=== PATIENT | female | born 1950 | race Caucasian/White ===

== ENCOUNTER 2019-11-14 14:44 | Emergency (ER) | payer MEDICARE, MEDICAID ==
[~2019-11-14] VITALS: Ht 167 cm; Wt 57.0 kg
--- NOTE | 2019-11-14 15:10 | NUR ---
WHILE JOHNNA LEON AND MYSELF WERE ASSISTING PT FROM W/C TO THE BED PT URINATED IN HER SHORTS AND ON THE FLOOR. SHORTS PLACED IN BELONGINGS BAG.
--- NOTE | 2019-11-14 15:21 | ED General ---
General Stated Complaint: FEVER Source of Information: Patient Exam Limitations: No Limitations History of Present Illness Date Seen by Provider: Nov 14, 2019 Time Seen by Provider: 15:20 Initial Comments To ER with reports of fever up to 102.5 earlier today. She was diagnosed with urinary tract infection on Tuesday11/09/19 and started on Bactrim DS. Today she developed a fever, she most recently had ibuprofen and Tylenol at 1:50 PM. Primary care is Dr. Newsome. She is from [place] as she is severely developmentally delayed Timing/Duration: 2-3 Days Severity: Moderate Associated Systoms: Denies Symptoms Allergies and Home Medications Allergies Coded Allergies: No Known Drug Allergies (Unverified , 11/14/19) Patient Home Medication List Home Medication List Reviewed: Yes Review of Systems Review of Systems Constitutional: see HPI, other (unable to obtain due to MR status ) EENTM: see HPI Respiratory: no symptoms reported Cardiovascular: no symptoms reported Genitourinary: no symptoms reported Musculoskeletal: no symptoms reported Skin: no symptoms reported Psychiatric/Neurological: No Symptoms Reported Hematologic/Lymphatic: No Symptoms Reported Past Orydhsj-Sjutbw-Zzutpi Hx Patient Social History Recent Foreign Travel: No Contact w/Someone Who Travel: No Physical Exam Vital Signs Vital Signs - First Documented 11/14/19 15:10 Temp 36.2 Pulse 65 Resp 20 B/P (MAP) 93/70 (78) Pulse Ox 97 O2 Delivery Room Air Capillary Refill : Height, Weight, BMI Height: '" Weight: lbs. oz. kg; BMI Method: General Appearance: No Apparent Distress, WD/WN, Other (alert, stands up with standby assistance out of the wheelchair and into bed, makes noises but no words. No distress, oxygen saturation 97% room air, afebrile 97.5, blood pressure 93/76.) Eyes: Bilateral Eye Normal Inspection, Bilateral Eye PERRL, Bilateral Eye EOMI HEENT: PERRL/EOMI Neck: Full Range of Motion, Normal Inspection Respiratory: No Accessory Muscle Use, No Respiratory Distress Cardiovascular: Regular Rate, Rhythm, Normal Peripheral Pulses (pain.) Gastrointestinal: Non Tender, Soft Extremity: Normal Capillary Refill, Normal Inspection Neurologic/Psychiatric: Alert, Oriented x3 Skin: Normal Color, Warm/Dry Focused Exam Lactate Level 11/14/19 15:15: Lactic Acid Level 0.97 Lactic Acid Level Laboratory Tests Test 11/14/19 15:15 Lactic Acid Level 0.97 MMOL/L (0.50-2.00) Progress/Results/Core Measures Suspected Sepsis SIRS Temperature: Pulse: Respiratory Rate: Laboratory Tests 11/14/19 15:15: White Blood Count 3.9L Blood Pressure / Mean: 11/14/19 15:15: Lactic Acid Level 0.97 Laboratory Tests 11/14/19 15:15: Creatinine 0.80, Platelet Count 257, Total Bilirubin 0.4 Results/Orders Lab Results Laboratory Tests Test 11/14/19 15:15 Range/Units White Blood Count 3.9 L 4.3-11.0 10^3/uL Red Blood Count 4.02 L 4.35-5.85 10^6/uL Hemoglobin 11.5 11.5-16.0 G/DL Hematocrit 35 35-52 % Mean Corpuscular Volume 88 80-99 FL Mean Corpuscular Hemoglobin 29 25-34 PG Mean Corpuscular Hemoglobin Concent 33 32-36 G/DL Red Cell Distribution Width 14.9 H 10.0-14.5 % Platelet Count 257 130-400 10^3/uL Mean Platelet Volume 9.7 7.4-10.4 FL Neutrophils (%) (Auto) 47 42-75 % Lymphocytes (%) (Auto) 36 12-44 % Monocytes (%) (Auto) 13 H 0-12 % Eosinophils (%) (Auto) 4 0-10 % Basophils (%) (Auto) 0 0-10 % Neutrophils # (Auto) 1.8 1.8-7.8 X 10^3 Lymphocytes # (Auto) 1.4 1.0-4.0 X 10^3 Monocytes # (Auto) 0.5 0.0-1.0 X 10^3 Eosinophils # (Auto) 0.1 0.0-0.3 10^3/uL Basophils # (Auto) 0.0 0.0-0.1 10^3/uL Urine Color YELLOW Urine Clarity CLEAR Urine pH 6.0 5-9 Urine Specific [place] 1.015 L 1.016-1.022 Urine Protein NEGATIVE NEGATIVE Urine Glucose (UA) NEGATIVE NEGATIVE Urine Ketones NEGATIVE NEGATIVE Urine Nitrite NEGATIVE NEGATIVE Urine Bilirubin NEGATIVE NEGATIVE Urine Urobilinogen 0.2 < = 1.0 MG/DL Urine Leukocyte Esterase 3+ H NEGATIVE Urine RBC (Auto) 1+ H NEGATIVE Urine RBC 5-10 H /HPF Urine WBC 10-25 H /HPF Urine Squamous Epithelial Cells 2-5 /HPF Urine Crystals NONE /LPF Urine Bacteria TRACE /HPF Urine Casts NONE /LPF Urine Mucus NEGATIVE /LPF Urine Culture Indicated YES Sodium Level 140 135-145 MMOL/L Potassium Level 4.5 3.6-5.0 MMOL/L Chloride Level 107 98-107 MMOL/L Carbon Dioxide Level 24 21-32 MMOL/L Anion Gap 9 5-14 MMOL/L Blood Urea Nitrogen 18 7-18 MG/DL Creatinine 0.80 0.60-1.30 MG/DL Estimat Glomerular Filtration Rate > 60 BUN/Creatinine Ratio 23 Glucose Level 100 70-105 MG/DL Lactic Acid Level 0.97 0.50-2.00 MMOL/L Calcium Level 8.9 8.5-10.1 MG/DL Corrected Calcium 9.2 8.5-10.1 MG/DL Total Bilirubin 0.4 0.1-1.0 MG/DL Aspartate Amino Transf (AST/SGOT) 18 5-34 U/L Alanine Aminotransferase (ALT/SGPT) 14 0-55 U/L Alkaline Phosphatase 51 40-136 U/L C-Reactive Protein High Sensitivity 0.01 0.00-0.50 MG/DL Total Protein 6.4 6.4-8.2 GM/DL Albumin 3.6 3.2-4.5 GM/DL My Orders Orders - JOHNNA LEON APRN Cbc With Automated Diff (11/14/19 14:55) Hs C Reactive Protein (11/14/19 14:55) Comprehensive Metabolic Panel (11/14/19 14:55) Ua Culture If Indicated (11/14/19 14:55) Ed Iv/Invasive Line Start (11/14/19 14:55) Blood Culture (11/14/19 14:55) Chest 1 View, Ap/Pa Only (11/14/19 14:55) Lactic Acid Analyzer (11/14/19 14:55) Ns Iv 1000 Ml (Sodium Chloride 0.9%) (11/14/19 15:45) Urine Culture (11/14/19 15:15) Ceftriaxone For Iv Use (Rocephin For I (11/14/19 16:00) Vital Signs/I&O 11/14/19 15:10 Temp 36.2 Pulse 65 Resp 20 B/P (MAP) 93/70 (78) Pulse Ox 97 O2 Delivery Room Air Capillary Refill : Diagnostic Imaging Diagonstic Imaging: Xray Comments NAME: JOSE PICHARDO [facility] REC#: [id number] PT STATUS: REG ER : 1950 PHYSICIAN: JOHNNA LEON APRN ADMIT DATE: 11/14/19/ER Draft Date of Exam:11/14/19 CHEST 1 VIEW, AP/PA ONLY HISTORY: Fever, UTI. COMPARISON: None. TECHNIQUE: Single frontal view of the chest. FINDINGS: Lung volumes are normal. No focal consolidation is seen. There is no pleural effusion or pneumothorax. The cardiac silhouette is normal in size and contour. Subdiaphragmatic air on the right appears to be intraluminal. IMPRESSION: 1. No acute pulmonary abnormality is seen. Dictated on workstation # [id number] Dict: 11/14/19 1544 Trans: 11/14/19 1548 [id number] Interpreted by: RACHEL LEBLANC MD Electronically signed by: Departure Impression Primary Impression: Urinary tract infection Qualified Codes: N30.00 - Acute cystitis without hematuria Disposition: HOME, SELF-CARE Condition: Stable Departure-Patient Inst. Decision time for Depature: 15:53 Referrals: KIRAN NEWSOME DO (PCP/Family) Primary Care Physician Patient Instructions: Urinary Tract Infections in Adults Add. Discharge Instructions: 1. Return to ER for any concerns 2. Follow-up with her doctor next week 3. Stop the Bactrim and start the Levaquin for antibiotic coverage of the urina ry tract infection. We did swab her for COVID 19 that result typically is back within 24-48 hours. Scripts Levofloxacin (Levaquin) 500 Mg Tablet 500 MG PO DAILY, #5 TAB Prov: JOHNNA LEON APRN 11/14/19 JOHNNA LEON APRN Nov 14, 2019 15:21
[2019-11-14 15:30] LABS: BASOPHILS % (AUTO) 0 % (0-10); EOSINOPHILS # (AUTO) 0.1 10^3/uL (0.0-0.3); EOSINOPHILS % (AUTO) 4 % (0-10); HEMATOCRIT 35 % (35-52); HEMOGLOBIN 11.5 G/DL (11.5-16.0); LYMPHOCYTES # (AUTO) 1.4 X 10^3 (1.0-4.0); LYMPHOCYTES % (AUTO) 36 % (12-44); MEAN CORPUSCULAR HEMOGLOBIN 29 PG (25-34); MEAN CORPUSCULAR HGB CONC 33 G/DL (32-36); MEAN CORPUSCULAR VOLUME 88 FL (80-99); MEAN PLATELET VOLUME 9.7 FL (7.4-10.4); MONOCYTES # (AUTO) 0.5 X 10^3 (0.0-1.0); MONOCYTES % (AUTO) 13 % (0-12); NEUTROPHILS # (AUTO) 1.8 X 10^3 (1.8-7.8); NEUTROPHILS % (AUTO) 47 % (42-75); PLATELET COUNT 257 10^3/uL (130-400); RED CELL DISTRIBUTION WIDTH 14.9 % (10.0-14.5); WHITE BLOOD COUNT 3.9 10^3/uL (4.3-11.0)
[2019-11-14 15:37] LABS: BILIRUBIN,URINE NEGATIVE (NEGATIVE); CLARITY,URINE CLEAR; COLOR,URINE YELLOW; GLUCOSE, URINE (UA) NEGATIVE (NEGATIVE); KETONES,URINE NEGATIVE (NEGATIVE); LEUKOCYTE ESTERASE ,URINE 3+ (NEGATIVE); NITRITE,URINE NEGATIVE (NEGATIVE); PROTEIN,URINE NEGATIVE (NEGATIVE)
[2019-11-14 15:39] LABS: ALBUMIN 3.6 GM/DL (3.2-4.5); CHLORIDE 107 MMOL/L (98-107); POTASSIUM 4.5 MMOL/L (3.6-5.0); SODIUM 140 MMOL/L (135-145)
[2019-11-14 15:40] LABS: CALCIUM 8.9 MG/DL (8.5-10.1)
[2019-11-14 15:41] LABS: GLUCOSE 100 MG/DL (70-105); TOTAL PROTEIN 6.4 GM/DL (6.4-8.2)
[2019-11-14 15:42] LABS: CARBON DIOXIDE 24 MMOL/L (21-32)
[2019-11-14 15:43] LABS: BILIRUBIN,TOTAL 0.4 MG/DL (0.1-1.0)
[2019-11-14 15:45] LABS: ALKALINE PHOSPHATASE 51 U/L (40-136); BACTERIA,URINE TRACE /HPF; GFR ESTIMATED > 60
[2019-11-14] MEDS ORDERED: NS IV 1000 ML 1,000 ML IV SCH (15:45)
[2019-11-14 15:46] LABS: BUN/CREATININE RATIO 23
[2019-11-14 15:48] LABS: ALANINE AMINOTRANSFERASE 14 U/L (0-55)
--- NOTE | 2019-11-14 15:49 | Diagnostic Imaging Report ---
HISTORY: Fever, UTI. COMPARISON: None. TECHNIQUE: Single frontal view of the chest. FINDINGS: Lung volumes are normal. No focal consolidation is seen. There is no pleural effusion or pneumothorax. The cardiac silhouette is normal in size and contour. Subdiaphragmatic air on the right appears to be intraluminal. IMPRESSION: 1. No acute pulmonary abnormality is seen. Dictated by: Dictated on workstation # [id number]
[2019-11-14] MEDS ORDERED: LEVO500T2 PO (15:55)
[2019-11-14] MEDS ORDERED: cefTRIAXone FOR IV USE 1,000 MG in WATER (STERILE) FOR INJECTION 10 ML IV ONE (16:00)
[2019-11-14 16:17] VITALS: BP 106/89
--- OUTSIDE RECORDS SUMMARY | 2019-11-14 17:21 | XMS REPORT | Continuity of Care Document ---
Author Organization Unknown Address Unknown Phone Unavailable Allergies Active Description Code Type Severity Reaction Onset Reported/Identified Relationship to Patient Clinical Status Yes No Known Drug Allergies [id number] Drug Allergy Unknown N/A 11/14/2019 Medications There is no data. Problems Date Dx Coded Attending Type Code Diagnosis Diagnosed By 03/13/2015 KIRAN NEWSOME DO Ot V76.12 03/31/2015 Ot V76.12 03/31/2015 Ot 729.81 03/31/2015 Ot 785.9 03/31/2015 Ot V76.12 03/31/2015 KIRAN NEWSOME DO Ot V76.12 03/31/2015 KIRAN NEWSOME DO Ot V76.12 07/23/2015 Ot R60.0 08/14/2015 Ot I77.9 08/14/2015 Ot R20.8 08/14/2015 Ot R60.0 08/18/2015 Ot F72 08/18/2015 Ot M79.89 08/18/2015 Ot R20.8 04/15/2016 Ot 729.81 SWE LLING OF LIMB 04/15/2016 Ot 785.9 CARD IOVAS SYS SYMP NEC 04/15/2016 Ot V76.12 OTH SCREEN MAMMO- MALIGN NEOPLASM OF ISA 04/15/2016 KIRAN NEWSOME DO Ot V76.12 OTH SCREEN MAMMO-MALIGN NEOPLASM OF ISA 04/15/2016 Ot F72 SEVERE INTELLECTUAL DISABILITIES 04/15/2016 Ot M79.89 OTH ER SPECIFIED SOFT TISSUE DISORDERS 04/15/2016 Ot R20.8 OTHE R DISTURBANCES OF SKIN SENSATION 04/15/2016 KIRAN NEWSOME DO Ot Z12.31 ENCNTR SCREEN MAMMOGRAM FOR MALIGNANT NE 04/16/2016 KIRAN NEWSOME DO Ot Z12.31 ENCNTR SCREEN MAMMOGRAM FOR MALIGNANT NE 04/16/2016 KIRAN NEWSOME DO Ot Z12.31 ENCNTR SCREEN MAMMOGRAM FOR MALIGNANT NE 05/06/2016 KIRAN NEWSOME DO Ot Z12.31 ENCNTR SCREEN MAMMOGRAM FOR MALIGNANT NE 05/12/2016 GELLENDER DO, KIRAN Ortiz Ot Z12.31 ENCNTR SCREEN MAMMOGRAM FOR MALIGNANT NE 06/03/2016 Ot F72 SEVERE INTELLECTUAL DISABILITIES 06/03/2016 Ot M79.89 OTH ER SPECIFIED SOFT TISSUE DISORDERS 06/03/2016 Ot R09.89 OTH SYMPTOMS AND SIGNS INVOLVING THE CIR 11/14/2019 GELLENDER DO, KIRAN Ortiz Ot V76.12 OTH SCREEN MAMMO-MALIGN NEOPLASM OF ISA 11/14/2019 Ot F72 SEVERE INTELLECTUAL DISABILITIES 11/14/2019 Ot M79.89 OTH ER SPECIFIED SOFT TISSUE DISORDERS 11/14/2019 Ot R09.89 OTH SYMPTOMS AND SIGNS INVOLVING THE CIR 11/14/2019 GELLENDER DO, KIRAN Ortiz Ot Z12.31 ENCNTR SCREEN MAMMOGRAM FOR MALIGNANT NE 11/14/2019 GELLENDER DO, KIRAN Ortiz Ot V76.12 OTH SCREEN MAMMO-MALIGN NEOPLASM OF ISA 11/14/2019 Ot F72 SEVERE INTELLECTUAL DISABILITIES 11/14/2019 Ot M79.89 OTH ER SPECIFIED SOFT TISSUE DISORDERS 11/14/2019 Ot R09.89 OTH SYMPTOMS AND SIGNS INVOLVING THE CIR 11/14/2019 GELLENDER DO, KIRAN Ortiz Ot Z12.31 ENCNTR SCREEN MAMMOGRAM FOR MALIGNANT NE 11/14/2019 GELLENDER DO, KIRAN Ortiz Ot V76.12 OTH SCREEN MAMMO-MALIGN NEOPLASM OF ISA 11/14/2019 Ot F72 SEVERE INTELLECTUAL DISABILITIES 11/14/2019 Ot M79.89 OTH ER SPECIFIED SOFT TISSUE DISORDERS 11/14/2019 Ot R09.89 OTH SYMPTOMS AND SIGNS INVOLVING THE CIR 11/14/2019 GELLENDER DO, KIRAN Ortiz Ot Z12.31 ENCNTR SCREEN MAMMOGRAM FOR MALIGNANT NE Procedures There is no data. Results Test Result Range Complete blood count (CBC) with automate d white blood cell (WBC) differential - 11/14/19 15:15 Blood leukocytes automated count (number/volume) 3.9 10*3/uL 4.3-11.0 Blood erythrocytes automated count (number/volume) 4.02 10*6/uL 4.35-5.85 Venous blood hemoglobin measurement (mass/volume) 11.5 g/dL 11.5-16.0 Blood hematocrit (volume fraction) 35 % 35-52 Automated erythrocyte mean corpuscular volume 88 [ foz_us] 80-99 Automated erythrocyte mean corpuscular h emoglobin (mass per erythrocyte) 29 pg 25-34 Automated erythrocyte mean corpuscular h emoglobin concentration measurement (mass/volume) 33 g/dL 32-36 Automated erythrocyte distribution width ratio 14. 9 % 10.0- 14.5 Automated blood platelet count (count/volume) 257 10*3/uL 130-400 Automated blood platelet mean volume measurement 9.7 [foz_us] 7.4-10.4 Automated blood neutrophils/100 leukocytes 47 % 42-75 Automated blood lymphocytes/100 leukocytes 36 % 12-44 Blood monocytes/100 leukocytes 13 % 0-12 Automated blood eosinophils/100 leukocytes 4 % 0-10 Automated blood basophils/100 leukocytes 0 % 0-10 Blood neutrophils automated count (number/volume) 1.8 10*3 1.8-7.8 Blood lymphocytes automated count (number/volume) 1.4 10*3 1.0-4.0 Blood monocytes automated count (number/volume) 0. 5 10*3 0.0-1.0 Automated eosinophil count 0.1 10*3/uL 0 .0-0.3 Automated blood basophil count (count/volume) 0.0 10*3/uL 0.0-0.1 Comprehensive metabolic panel - 11/14/19 15:15 Serum or plasma sodium measurement (moles/volume) 140 mmol/L 135-145 Serum or plasma potassium measurement (moles/volume) 4.5 mmol/L 3.6-5.0 Serum or plasma chloride measurement (moles/volume) 107 mmol/L 98-107 Carbon dioxide 24 mmol/L 21-32 Serum or plasma anion gap determination (moles/volume) 9 mmol/L 5-14 Serum or plasma urea nitrogen measurement (mass/volume ) 18 mg/dL 7-18 Serum or plasma creatinine measurement (mass/volume) 0.80 mg/dL 0.60-1.30 Serum or plasma urea nitrogen/creatinine mass ratio 23 NRG Serum or plasma creatinine measurement w ith calculation of estimated glomerular filtration rate > NRG Serum or plasma glucose measurement (mass/volume) 100 mg/dL 70-105 Serum or plasma calcium measurement (mass/volume) 8.9 mg/dL 8.5-10.1 Serum or plasma total bilirubin measurement (mass/volu me) 0.4 mg/dL 0.1-1.0 Serum or plasma alkaline phosphatase cory surement (enzymatic activity/volume) 51 U/L 40-136 Serum or plasma aspartate aminotransfera se measurement (enzymatic activity/volume) 18 U/L 5-34 Serum or plasma alanine aminotransferase measurement (enzymatic activity/volume) 14 U/L 0-55 Serum or plasma protein measurement (mass/volume) 6.4 g/dL 6.4-8.2 Serum or plasma albumin measurement (mass/volume) 3.6 g/dL 3.2-4.5 CALCIUM CORRECTED 9.2 mg/dL 8.5-10.1 Blood lactic acid measurement (moles/vol ume) - 11/14/19 15:15 Blood lactic acid measurement (moles/volume) 0.97 mmol/L 0.50-2.00 Complete urinalysis with reflex to cultu re - 11/14/19 15:15 Urine color determination YELLOW NRG Urine clarity determination CLEAR NR G Urine pH measurement by test strip 6.0 5-9 Specific gravity of urine by test strip 1.015 1.016-1.022 Urine protein assay by test strip, semi-quantitative NEGATIVE NEGATIVE Urine glucose detection by automated test strip NE GATIVE NEGATIVE Erythrocytes detection in urine sediment by light micr oscopy 1+ NEGATIVE Urine ketones detection by automated test strip NE GATIVE NEGATIVE Urine nitrite detection by test strip NEGATIVE NEGATIVE Urine total bilirubin detection by test strip NEGA TIVE NEGATIVE Urine urobilinogen measurement by automated test strip (mass/volume) 0.2 mg/dL < = 1.0 Urine leukocyte esterase detection by dipstick 3+ NEGATIVE Automated urine sediment erythrocyte cou nt by microscopy (number/high power field) [HPF] NRG Automated urine sediment leukocyte count by microscopy (number/high power field) [HPF] NRG Bacteria detection in urine sediment by light microsco py TRACE NRG Squamous epithelial cells detection in u rine sediment by light microscopy 2-5 NRG Crystals detection in urine sediment by light microsco py NONE NRG Casts detection in urine sediment by light microscopy NONE NRG Mucus detection in urine sediment by light microscopy NEGATIVE NRG Complete urinalysis with reflex to culture YES NRG Serum or plasma C reactive protein measu rement (mass/volume) - 11/14/19 15:15 Serum or plasma C reactive protein measurement (mass/v olume) 0.01 mg/dL 0.00-0.50 Encounters ACCT No. Visit Date/Time Discharge Status Pt. Type Provider Facility Loc./Unit Complaint [id number] 11/14/2019 14:45:00 020 16:17:00 DIS Emergency JOHNNA LEON APRN [facility] ER FEVER [id number] 04/15/2016 10:05:00 016 23:59:59 CLS Outpatient KIRAN NEWSOME DO [facility] RAD SCREENING [id number] 02/21/2015 13:11:00 015 23:59:59 CLS Outpatient KIRAN NEWSOME DO [facility] RAD SCREENING [id number] 07/10/2015 14:08:00 Document Registration [id number] 05/24/2011 09:47:00 Document Registration [id number] 01/14/2011 14:18:00 Document Registration [id number] 10/16/2009 12:37:00 Document Registration
--- OUTSIDE RECORDS SUMMARY | 2019-11-14 17:21 | XMS REPORT ---
Author Author [employer] broadband [employer] [facility] [place] [employer] [facility] Address [address] [place] [address] Care Team Providers Care Air Conditioning Service Technician Name Role Phone GELLENDER DO, KIRAN A Unavailable Unavailable Unavailable Unavailable Unavailable Unavailable Allergies No Information Medications No Information Problems Problem Normalized Date Last Normalized Normalized Provider Fa cility Classification Problem(s) Recorded Problem Problem Sta tus Duration Other Encounter for 11-14-2019 - Episodic Active KIRAN [facility] Via screening for screening GELLENDER , DO Kath[place] suspected mammogram for Hospital - conditions malignant [place] (not mental neoplasm of (41674) disorders or breast infectious disease) (1 source.) Other Other 11-14-2019 - Episodic Active KIRAN [facility] V ia connective specified soft GELLENDER , DO [place] tissue disease tissue Hospital - (2 sources.) disorders [place] ([address]) Other Other 11-14-2019 - Episodic Active K[facility]AN [facility] V ia circulatory specified GELLENDER , DO Kath[place] disease (2 symptoms and Hospital - sources.) signs [place] involving the ([address]74) circulatory and respiratory systems 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 KIRAN [facility] Via disorders (2 intellectual GELLENDER , DO Kathrin sources.) disabilities Hospital [facility] ([address]) Procedures No Information Immunizations No Information Results Test Name Value Interpretation Reference Range Date Time Fa cility (Normalized) (Normalized) (Medline Reference) laboratory on 2019-11-14 Albumin 3.6 g/dL (NEG) 3.4 - 5.4 g/dL 11-14-2019 PENDING LOCATION [Mass/Vol] 11:15-399 [facility] (82645) ALP [Catalytic 51 U/L (NEG) 44 - 147 U/L 11-14-2019 PEND ING LOCATION activity/Vol] 11:15-0400 [facility] (08079) ALT [Catalytic 14 U/L (NEG) 4 - 40 U/L 11-14-2019 PENDIN G LOCATION activity/Vol] 11:15-040 [facility] (93805) Anion gap 9 mmol/L (NEG) 3 - 11 mmol/L 11-14-2019 PENDING LOCATION [Moles/Vol] 11: [facility] (46718) AST [Catalytic 18 U/L (NEG) 10 - 34 U/L 11-14-2019 PENDI NG LOCATION activity/Vol] 11: [facility] (53355) Bacteria LM Ql TRACE (no code) 11-14-2019 PENDING LOC ATION (Urine sed) 11: [facility] () Basophils (Bld) 0.0 10*3/uL (NEG) 0 - 0.3 10*3/uL 11-14-2019 PENDING LOCATION [#/Vol] 11: [facility] () Basophils/100 0 % (NEG) 0.5 - 1 % 11-14-2019 PENDING LOCATION WBC (Bld) 11: [facility] () Bilirubin 0.4 mg/dL (NEG) 0.1 - 1.2 mg/dL 11-14-2019 PENDIN G LOCATION [Mass/Vol] 11: [facility] (91222) Bilirubin Ql (U) Negative (no code) 11-14-2019 PENDING L OCATION 11: [facility] () Calcium 8.9 mg/dL (NEG) 8.5 - 10.2 mg/dL 11-14-2019 PENDI NG LOCATION [Mass/Vol] 11: [facility] (71738) Calcium 9.2 mg/dL (NEG) 8.5 - 10.2 mg/dL 11-14-2019 PENDI NG LOCATION [Mass/Vol] 11: [facility] (43672) Casts LM Ql NONE (no code) 11-14-2019 PENDING LOCATI ON (Urine sed) 11: [facility] () Chloride 107 mmol/L (NEG) 95 - 106 mmol/L 11-14-2019 PENDI NG LOCATION [Moles/Vol] 11: [facility] (22555) Clarity (U) CLEAR (no code) 11-14-2019 PENDING LOCATI ON 11: [facility] () CO2 [Moles/Vol] 24 mmol/L (NEG) 23 - 29 mmol/L 11-14-2019 P ENDING LOCATION 11: [facility] (85852) Color (U) YELLOW (no code) 11-14-2019 PENDING LOCATI ON 11:0 [facility] (84144) Creatinine 0.80 mg/dL (NEG) 11-14-2019 PENDING LOCATI ON [Mass/Vol] 11:15-0 [facility] (52617) Creatinine and > (no code) 11-14-2019 PENDING LOC ATION Glomerular 11:15-0 [facility] (95398) filtration rate.predicted panel - Serum, Plasma or Blood Crystals LM Ql NONE (no code) 11-14-2019 PENDING LOC ATION (Urine sed) 11:0 [facility] (62781) Eosinophils 0.1 10*3/uL (NEG) 0.05 - 0.5 11-14-2019 PENDING LOCATION (Bld) [#/Vol] 10*3/uL 11:0 [facility] (29369) Eosinophils/100 4 % (NEG) 1 - 4 % 11-14-2019 PENDIN G LOCATION WBC (Bld) 11:0 [facility] (45606) Epithelial 2-5 (no code) 11-14-2019 PENDING LOCATI ON cells.squamous 11:0 [facility] (30400) LM Ql (Urine sed) Erythrocyte 14.9 % (H) 11.6 - 14.6 % 11-14-2019 PENDIN G LOCATION distribution 11: [facility] (12132) width (RBC) [Ratio] Glucose 100 mg/dL (NEG) 60 - 125 mg/dL 11-14-2019 PENDING LOCATION [Mass/Vol] 11:150400 [facility] (64257) Glucose Auto Negative (no code) 11-14-2019 PENDING LOCAT ION test strip Ql 11:0 [facility] (19994) (U) Hematocrit (Bld) 35 % (NEG) 36.1 - 50.3 % 11-14-2019 P ENDING LOCATION [Volume 11: [facility] (44479) fraction] Hemoglobin (Bld) 11.5 g/dL (NEG) 12.1 - 17.2 g/dL 06-10-2020 PENDING LOCATION [Mass/Vol] 11:150400 [facility] (73145) Ketones Auto Negative (no code) 11-14-2019 PENDING LOCAT ION test strip Ql 11:150 [facility] (92731) (U) Lactate 0.97 mmol/L (NEG) 0.5 - 2.2 mmol/L 11-14-2019 PEN DING LOCATION [Moles/Vol] 11:150 [facility] (43405) Leukocyte 3+ (A) 11-14-2019 PENDING LOCATI ON esterase Test 11:0 [facility] (64236) strip Ql (U) Lymphocytes 1.4 10*3/uL (NEG) 0.9 - 2.9 11-14-2019 PENDING LOCATION (Bld) [#/Vol] 10*3/uL 11:15-0400 [facility] (30362) Lymphocytes/100 36 % (NEG) 20 - 40 % 11-14-2019 PENDIN G LOCATION WBC (Bld) 11:150400 [facility] (45096) MCH (RBC) 29 pg (NEG) 27 - 31 pg 11-14-2019 PENDING LOC ATION [Entitic mass] 11:15-0400 [facility] (71973) MCHC (RBC) 33 g/dL (NEG) 32 - 36 g/dL 11-14-2019 PENDING LOCATION [Mass/Vol] 11:15-0400 [facility] (15902) MCV (RBC) 88 (NEG) 11-14-2019 PENDING LOCATI ON [Entitic vol] 11:15-0400 [facility] (88060) Monocytes (Bld) 0.5 10*3/uL (NEG) 0.3 - 0.9 11-14-2019 PEND ING LOCATION [#/Vol] 10*3/uL 11:15-0400 [facility] (49048) Monocytes/100 13 % (H) 2 - 8 % 11-14-2019 PENDING LOCATION WBC (Bld) 11:15-0400 [facility] (37945) Mucus Ql (Urine Negative (no code) 11-14-2019 PENDING LO CATION sed) 11:15-0400 [facility] (72170) Neutrophils 1.8 10*3/uL (NEG) 1.7 - 7 10*3/uL 11-14-2019 PE NDING LOCATION (Bld) [#/Vol] 11:0 [facility] (09371) Neutrophils/100 47 % (NEG) 40 - 60 % 11-14-2019 PENDIN G LOCATION WBC (Bld) 11: [facility] (24460) Nitrite Ql (U) Negative (no code) 11-14-2019 PENDING LOC ATION 11:150 [facility] (60483) pH (U) 6.0 [pH] (no code) 4.6 - 8 [pH] 11-14-2019 PENDING L OCATION 11: [facility] (11247) Platelet mean 9.7 (NEG) 11-14-2019 PENDING LOCA TION volume (Bld) 11: [facility] (39228) [Entitic vol] Platelets (Bld) 257 10*3/uL (NEG) 150 - 450 11-14-2019 PEND ING LOCATION [#/Vol] 10*3/uL 11:0 [facility] (81807) Potassium 4.5 mmol/L (NEG) 3.7 - 5.2 mmol/L 11-14-2019 PEND ING LOCATION [Moles/Vol] 11:0 [facility] (58710) Protein 6.4 g/dL (NEG) 6.4 - 8.3 g/dL 11-14-2019 PENDING LOCATION [Mass/Vol] 11: [facility] (53497) Protein Ql (U) Negative (no code) 11-14-2019 PENDING LOC ATION 11:0 [facility] (29773) RBC (Bld) 4.02 10*6/uL (L) 4.2 - 6.1 11-14-2019 PENDING L OCATION [#/Vol] 10*6/uL 11:150400 [facility] (83947) RBC LM.HPF no information (A) 11-14-2019 PENDING LOC ATION (Urine sed) 11: [facility] (76949) [#/Area] RBC Ql (U) 1+ (A) 11-14-2019 PENDING LOCATI ON 11:0 [facility] (82060) Sodium 140 mmol/L (NEG) 135 - 145 mmol/L 11-14-2019 PEND ING LOCATION [Moles/Vol] 11:150 [facility] (37105) Specific gravity 1.015 (L) 11-14-2019 PENDING L OCATION (U) [Rel 11: [facility] (12685) density] Urea nitrogen 18 mg/dL (NEG) 7 - 20 mg/dL 11-14-2019 PENDI NG LOCATION [Mass/Vol] 11: [facility] (17389) Urea 23 mg/mg (no code) 6 - 22 mg/mg 11-14-2019 PENDING L OCATION nitrogen/Creatin 11: [facility] (37433) ine [Mass ratio] Urinalysis YES (no code) 11-14-2019 PENDING LOCATI ON complete W 11: [facility] (69925) Reflex Culture panel - Urine Urobilinogen (U) 0.2 mg/dL (no code) 11-14-2019 PENDING L OCATION [Mass/Vol] 11:0 [facility] (96053) WBC (Bld) 3.9 10*3/uL (L) 3.5 - 10.5 11-14-2019 PENDING L OCATION [#/Vol] 10*3/uL 11:0 [facility] (60659) WBC LM.HPF no information (A) 11-14-2019 PENDING LOC ATION (Urine sed) 11: [facility] (11042) [#/Area] Vital Signs No Information Interventions No Information Plan of Treatment No Information Goals No Information Social History No Information Functional Status No Information Mental Status No Information Encounters Encounter Normalized Encounter Encounter Diagnosis Care Provi akhil Organization Date Type 04-15-2016 Patient encounter no information KIRAN A GELLENDE R DO [facility] procedure (no phone) [facility] (no phone) 07-10-2015 Patient encounter no information KIRAN A GELLENDE R DO [facility] Via [place] procedure (no phone) [facility] (no phone) Medical Equipment No Information Payers No Information Additional Source Comments This clinical document has been generated using [employer] software that has been certified by the Office of the National Coordinator for Health Information Technology (ONC 15.99.04.3023.Diam.31.00.0.297012) and the National Committee for Literary Writer (NCQA, as an eMeasure certified technology). FOR RECORDS PERTAINING TO PATIENTS WHO ARE OR HAVE BEEN ENROLLED IN A CHEMICAL D EPENDENCY/SUBSTANCE ABUSE PROGRAM, SOME INFORMATION MAY BE OMITTED. This clinica l summary was aggregated from multiple sources. Caution should be exercised in using it in the provision of clinical care. This summary normalizes information from multiple sources, and as a consequence, information in this document may ma terially change the coding, format and clinical context of patient data. In maria m tion, data may be omitted in some cases. CLINICAL DECISIONS SHOULD BE BASED ON T HE PRIMARY CLINICAL RECORDS. [facility] [employer] [facility]. provides no warranty or guara ntee of the accuracy or completeness of information in this document.The followi ng information is based on time limited clinical information
[2019-11-15] MEDS ORDERED: DCS100C (11:19)
[2019-11-15] MEDS ORDERED: SULF-11 (11:19)
== END 2019-11-14 16:17 | disposition home or self-care (01) ==
LOC: EDUNIT# 14:44 → ER 14:45
DX: N39.0 Urinary tract infection, site not specified (principal); Z20.828 Contact with and (suspected) exposure to other viral communicable diseases
CPT/HCPCS: 36415; 51701; 71045; 80053; 81000; 83605; 85025; 86141; 87040; 87088; 87635

== ENCOUNTER 2019-11-15 09:36 | Emergency (ER) | payer MEDICARE, MEDICAID ==
[~2019-11-15] VITALS: Ht 162 cm; Wt 70.4 kg
[~2019-11-15 09:36] MED LIST: LEVO500T2 PO
[2019-11-15 10:34] LABS: BASOPHILS % (AUTO) 0 % (0-10); EOSINOPHILS # (AUTO) 0.1 10^3/uL (0.0-0.3); EOSINOPHILS % (AUTO) 3 % (0-10); HEMATOCRIT 35 % (35-52); HEMOGLOBIN 11.5 G/DL (11.5-16.0); LYMPHOCYTES # (AUTO) 1.4 X 10^3 (1.0-4.0); LYMPHOCYTES % (AUTO) 35 % (12-44); MEAN CORPUSCULAR HEMOGLOBIN 29 PG (25-34); MEAN CORPUSCULAR HGB CONC 33 G/DL (32-36); MEAN CORPUSCULAR VOLUME 89 FL (80-99); MEAN PLATELET VOLUME 10.1 FL (7.4-10.4); MONOCYTES # (AUTO) 0.5 X 10^3 (0.0-1.0); MONOCYTES % (AUTO) 12 % (0-12); NEUTROPHILS % (AUTO) 50 % (42-75); PLATELET COUNT 231 10^3/uL (130-400); RED CELL DISTRIBUTION WIDTH 14.7 % (10.0-14.5); WHITE BLOOD COUNT 3.9 10^3/uL (4.3-11.0)
[2019-11-15 10:34] LABS: BILIRUBIN,URINE NEGATIVE (NEGATIVE); CLARITY,URINE CLEAR; COLOR,URINE YELLOW; GLUCOSE, URINE (UA) NEGATIVE (NEGATIVE); KETONES,URINE NEGATIVE (NEGATIVE); LEUKOCYTE ESTERASE ,URINE 3+ (NEGATIVE); NITRITE,URINE NEGATIVE (NEGATIVE); PROTEIN,URINE NEGATIVE (NEGATIVE)
[2019-11-15 10:43] LABS: ALBUMIN 3.6 GM/DL (3.2-4.5); CHLORIDE 107 MMOL/L (98-107); POTASSIUM 4.3 MMOL/L (3.6-5.0); SODIUM 139 MMOL/L (135-145)
[2019-11-15 10:46] LABS: GLUCOSE 75 MG/DL (70-105); TOTAL PROTEIN 6.4 GM/DL (6.4-8.2)
[2019-11-15 10:47] LABS: BILIRUBIN,TOTAL 0.6 MG/DL (0.1-1.0); CARBON DIOXIDE 25 MMOL/L (21-32)
[2019-11-15 10:49] LABS: ALKALINE PHOSPHATASE 48 U/L (40-136); CREATININE SERUM 0.67 MG/DL (0.60-1.30); GFR ESTIMATED > 60; INR 1.1 (0.8-1.4); PROTHROMBIN TIME PATIENT 14.5 SEC (12.2-14.7)
[2019-11-15 10:50] LABS: BUN/CREATININE RATIO 31
[2019-11-15 10:52] LABS: ALANINE AMINOTRANSFERASE 15 U/L (0-55)
[2019-11-15 10:52] LABS: BACTERIA,URINE FEW /HPF
[2019-11-15] MEDS ORDERED: DCS100C (11:19)
[2019-11-15] MEDS ORDERED: SULF-11 (11:19)
--- NOTE | 2019-11-15 11:22 | Diagnostic Imaging Report ---
Portable supine AP chest at 1110 hours. INDICATION: Fever. FINDINGS: The heart size is within normal limits and stable when compared to 11/14/2019. The lungs remain clear. There is no sign of failure, pneumonia or pleural effusion. The mediastinum is not widened. The osseous structures are intact. IMPRESSION: There is no evidence for active disease. When compared to the prior study, there has been no significant change. Dictated by: Dictated on workstation # [id number]
--- NOTE | 2019-11-15 11:43 | ED GU-Female ---
General Chief Complaint: Fever-Adult/Adol Stated Complaint: FEVER Nursing Triage Note: pt presents to ed from [facility] with staff concerns of continued fever despite tylenol/motrin administration. pt was seen in ed for uti yesterday and prescribed antibiotics which she has not started yet. Nursing Sepsis Screen: No Definite Risk History of Present Illness Date Seen by Provider: Nov 15, 2019 Time Seen by Provider: 11:30 Initial Comments 69 year old female from [place] is brought fever and continued UTI symptoms. [facility], nonverbal. Was seen here yesterday, diagnosed with UTI and prescribed Levaquin, they have not given this to her. Timing/Duration: yesterday Severity/Quality: mild Location: unknown Associated Symptoms: fever/chills (reported by staff at [facility]) Allergies and Home Medications Allergies Coded Allergies: No Known Drug Allergies (Unverified , 11/14/19) Home Medications Levofloxacin 500 Mg Tablet, 500 MG PO DAILY Prescribed by: JOHNNA LEON on 11/14/19 2596 Patient Home Medication List Home Medication List Reviewed: Yes Review of Systems Review of Systems Constitutional: no symptoms reported, see HPI Gastrointestinal: no symptoms reported, see HPI Genitourinary: no symptoms reported, see HPI All Other Systemes Reviewed Negative Unless Noted: Yes Past Ggtgqsv-Ilmgon-Tvsnci Hx Past Med/Social Hx: Reviewed Nursing Past Med/Soc Hx Patient Social History Alcohol Use: Denies Use Recreational Drug Use: No Smoking Status: Never a Smoker Recent Foreign Travel: No Contact w/Someone Who Travel: No Recent Infectious Disease Expo: No Recent Hopitalizations: No Physical Abuse: No Sexual Abuse: No Mistreated: No Fear: No Past Medical History Surgeries: Yes Hysterectomy Respiratory: No Cardiac: No Neurological: Yes Developmental Disorder WEB SITE ADMIN History: Hysterectomy Genitourinary: Yes UTI-Chronic Gastrointestinal: Yes Chronic Constipation Endocrine: No 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 oz. kg; 26.00 BMI Method: General Appearance: WD/WN, no apparent distress Neck: non-tender, full range of motion, supple, normal inspection Cardiovascular: normal peripheral pulses, regular rate, rhythm Respiratory: chest non-tender, lungs clear, normal breath sounds, no respiratory distress Gastrointestinal: normal bowel sounds, non tender, soft Extremities: normal range of motion, non-tender, normal inspection, normal capillary refill Skin: normal color, warm/dry, pallor Focused Exam Lactate Level 11/15/19 10:00: Lactic Acid Level 0.88 Lactic Acid Level Laboratory Tests Test 11/15/19 10:00 Lactic Acid Level 0.88 MMOL/L (0.50-2.00) Progress/Results/Core Measures Suspected Sepsis Recent Fever Within 48 Hours: Yes Infection Criteria Present: Documented Infection New/Unexplained Altered Menta: No Sepsis Screen: No Definite Risk SIRS Temperature: Pulse: 65 Respiratory Rate: 18 Laboratory Tests 11/15/19 10:00: White Blood Count 3.9L Blood Pressure 112 /77 Mean: 89 11/15/19 10:00: Lactic Acid Level 0.88 Laboratory Tests 11/15/19 10:00: Creatinine 0.67, INR Comment 1.1, Platelet Count 231, Total Bilirubin 0.6 Results/Orders Lab Results Laboratory Tests Test 11/15/19 10:00 11/15/19 10:23 Range/Units White Blood Count 3.9 L 4.3-11.0 10^3/uL Red Blood Count 3.92 L 4.35-5.85 10^6/uL Hemoglobin 11.5 11.5-16.0 G/DL Hematocrit 35 35-52 % Mean Corpuscular Volume 89 80-99 FL Mean Corpuscular Hemoglobin 29 25-34 PG Mean Corpuscular Hemoglobin Concent 33 32-36 G/DL Red Cell Distribution Width 14.7 H 10.0-14.5 % Platelet Count 231 130-400 10^3/uL Mean Platelet Volume 10.1 7.4-10.4 FL Neutrophils (%) (Auto) 50 42-75 % Lymphocytes (%) (Auto) 35 12-44 % Monocytes (%) (Auto) 12 0-12 % Eosinophils (%) (Auto) 3 0-10 % Basophils (%) (Auto) 0 0-10 % Neutrophils # (Auto) 2.0 1.8-7.8 X 10^3 Lymphocytes # (Auto) 1.4 1.0-4.0 X 10^3 Monocytes # (Auto) 0.5 0.0-1.0 X 10^3 Eosinophils # (Auto) 0.1 0.0-0.3 10^3/uL Basophils # (Auto) 0.0 0.0-0.1 10^3/uL Prothrombin Time 14.5 12.2-14.7 SEC INR Comment 1.1 0.8-1.4 Activated Partial Thromboplast Time 29 24-35 SEC Sodium Level 139 135-145 MMOL/L Potassium Level 4.3 3.6-5.0 MMOL/L Chloride Level 107 98-107 MMOL/L Carbon Dioxide Level 25 21-32 MMOL/L Anion Gap 7 5-14 MMOL/L Blood Urea Nitrogen 21 H 7-18 MG/DL Creatinine 0.67 0.60-1.30 MG/DL Estimat Glomerular Filtration Rate > 60 BUN/Creatinine Ratio 31 Glucose Level 75 70-105 MG/DL Lactic Acid Level 0.88 0.50-2.00 MMOL/L Calcium Level 9.0 8.5-10.1 MG/DL Corrected Calcium 9.3 8.5-10.1 MG/DL Total Bilirubin 0.6 0.1-1.0 MG/DL Aspartate Amino Transf (AST/SGOT) 21 5-34 U/L Alanine Aminotransferase (ALT/SGPT) 15 0-55 U/L Alkaline Phosphatase 48 40-136 U/L C-Reactive Protein High Sensitivity 0.01 0.00-0.50 MG/DL Total Protein 6.4 6.4-8.2 GM/DL Albumin 3.6 3.2-4.5 GM/DL Urine Color YELLOW Urine Clarity CLEAR Urine pH 6.0 5-9 Urine Specific [place] 1.010 L 1.016-1.022 Urine Protein NEGATIVE NEGATIVE Urine Glucose (UA) NEGATIVE NEGATIVE Urine Ketones NEGATIVE NEGATIVE Urine Nitrite NEGATIVE NEGATIVE Urine Bilirubin NEGATIVE NEGATIVE Urine Urobilinogen 0.2 < = 1.0 MG/DL Urine Leukocyte Esterase 3+ H NEGATIVE Urine RBC (Auto) 3+ H NEGATIVE Urine RBC 5-10 H /HPF Urine WBC 2-5 /HPF Urine Squamous Epithelial Cells 2-5 /HPF Urine Crystals NONE /LPF Urine Bacteria FEW H /HPF Urine Casts NONE /LPF Urine Mucus NEGATIVE /LPF Urine Culture Indicated CULTURE PENDING Micro Results Microbiology 11/15/19 Influenza Types A,B Antigen (LUL) - Final, Complete My Orders Orders - ASHLY SEXTON Levofloxacin 500 Mg/100 Ml Iv (Levaquin (11/15/19 11:45) Medications Given in ED Current Medications Medications Dose Ordered Sig/[place] Route Start Time Stop Time Status Last Admin Dose Admin Levofloxacin/ Dextrose 100 ml @ 100 mls/hr ONCE ONCE IV 11/15/19 11:45 11/15/19 12:44 DC 11/15/19 12:11 100 MLS/HR Vital Signs/I&O 11/15/19 09:50 Temp 35.0 Pulse 65 Resp 18 B/P (MAP) 112/77 (89) Pulse Ox 97 Capillary Refill : Less Than 3 Seconds Blood Pressure Mean: 89 Diagnostic Imaging Diagonstic Imaging: Xray Plain Films/CT/US/NM/MRI: chest Comments NAME: [facility] REC#: [id number] PT STATUS: REG ER : 1950 PHYSICIAN: GONSALO VITALE MD ADMIT DATE: 11/15/19/ER Draft Date of Exam:11/15/19 CHEST 1 VIEW, AP/PA ONLY Portable supine AP chest at 1110 hours. INDICATION: Fever. FINDINGS: The heart size is within normal limits and stable when compared to 11/14/2019. The lungs remain clear. There is no sign of failure, pneumonia or pleural effusion. The mediastinum is not widened. The osseous structures are intact. IMPRESSION: There is no evidence for active disease. When compared to the prior study, there has been no significant change. Dictated on workstation # [id number] Dict: 11/15/19 1113 Trans: 11/15/19 [facility]2 [id number] Interpreted by: LINDA ALONSO MD Electronically signed by: Departure Impression Primary Impression: UTI (urinary tract infection) Qualified Codes: N30.01 - Acute cystitis with hematuria Disposition: HOME, SELF-CARE Condition: Improved Departure-Patient Inst. Decision time for Depature: 12:15 Referrals: KIRAN NEWSOME DO (PCP/Family) Primary Care Physician Patient Instructions: Urinary Tract Infection, Adult (DC) Add. Discharge Instructions: Administer Levaquin 1 tablet daily as prescribed yesterday. Continue to alternate between Tylenol and ibuprofen every 4 hours for fever or pain. Follow-up with primary care provider if symptoms are not improving or worsen. Return to the emergency department for new, urgent health care needs. All discharge instructions reviewed with patient and/or family. Voiced understanding. Copy Copies To 1: KIRAN NEWSOME AMY ARNP Nov 15, 2019 11:43
[2019-11-15] MEDS ORDERED: LEVOFLOXACIN 500 MG/100 ML IV 100 ML IV ONE (11:45)
[2019-11-15 13:38] VITALS: BP 120/79
== END 2019-11-15 13:38 | disposition home or self-care (01) ==
LOC: EDUNIT# 09:36 → ER 09:38
DX: N39.0 Urinary tract infection, site not specified (principal)
CPT/HCPCS: 36415; 51701; 71045; 80053; 81000; 83605; 85025; 85610; 85730; 86141; 87040; 87077; 87088; 87186; 87804

== ENCOUNTER 2020-08-28 14:50 | Emergency (ER) | payer MEDICARE, MEDICAID ==
[~2020-08-28] VITALS: Ht 162.5 cm; Wt 63.6 kg
[~2020-08-28 14:50] MED LIST changes: +DCS100C; +SULF-11
[2020-08-28 15:33] LABS: BILIRUBIN,URINE NEGATIVE (NEGATIVE); CLARITY,URINE CLEAR; COLOR,URINE YELLOW; GLUCOSE, URINE (UA) NEGATIVE (NEGATIVE); KETONES,URINE NEGATIVE (NEGATIVE); LEUKOCYTE ESTERASE ,URINE 1+ (NEGATIVE); NITRITE,URINE NEGATIVE (NEGATIVE); PH,URINE 8.5 (5-9); PROTEIN,URINE 3+ (NEGATIVE)
[2020-08-28 15:37] LABS: BASOPHILS % (AUTO) 0 % (0-10); EOSINOPHILS # (AUTO) 0.1 10^3/uL (0.0-0.3); EOSINOPHILS % (AUTO) 1 % (0-10); HEMATOCRIT 36 % (35-52); HEMOGLOBIN 11.6 g/dL (11.5-16.0); LYMPHOCYTES # (AUTO) 2.1 10^3/uL (1.0-4.0); LYMPHOCYTES % (AUTO) 25 % (12-44); MEAN CORPUSCULAR HEMOGLOBIN 29 pg (25-34); MEAN CORPUSCULAR HGB CONC 32 g/dL (32-36); MEAN CORPUSCULAR VOLUME 91 fL (80-99); MEAN PLATELET VOLUME 9.8 fL (9.0-12.2); MONOCYTES # (AUTO) 0.8 10^3/uL (0.0-1.0); MONOCYTES % (AUTO) 10 % (0-12); NEUTROPHILS # (AUTO) 5.2 10^3/uL (1.8-7.8); NEUTROPHILS % (AUTO) 64 % (42-75); PLATELET COUNT 261 10^3/uL (130-400); WHITE BLOOD COUNT 8.1 10^3/uL (4.3-11.0)
--- NOTE | 2020-08-28 15:41 | ED General ---
General Chief Complaint: - Urinary Stated Complaint: URINARY SYMPTOMS Nursing Triage Note: TO ED PER EMS FROM [facility] PER DIR FROM [facility] PATIENT WAS TAKEN TO DR NEWSOME FOR UTI SYMPTOMS. WAS GIVEN RX FOR AMOXIL STAFF DID NOT GET IT FILLED DECIDED TO SEND HER TO THE ER FOR CONCERN OF NOT EATING BUT DRINKING. AND STAFF REPORT VAG DISCHARGE. Nursing Sepsis Screen: No Definite Risk Source of Information: Patient Exam Limitations: No Limitations History of Present Illness Date Seen by Provider: Aug 28, 2020 Time Seen by Provider: 14:51 Initial Comments This 69-year-old woman is a client of [facility] who presents to the emergency department at the direction of staff because her behavior is not normal. She is drinking but not eating well. She appears to have discomfort without any focal area of injury or tenderness identified. She is afebrile. She went to Dr. Newsome's office yesterday and was suspected of having urinary tract infection. Amoxicillin was prescribed but they have not started it yet. Symptoms have not improved and she was therefore sent to the emergency room. Staff also thought she perhaps had a vaginal discharge. Patient has severe developmental disabilities. Allergies and Home Medications Allergies Coded Allergies: No Known Drug Allergies (Unverified , 11/14/19) Home Medications Fluconazole 150 Mg Tablet, 150 MG PO UD Take 1 tablet now and repeat in 3 days. Prescribed by: GONSALO CASTRO on 08/28/20 1611 Levofloxacin 500 Mg Tablet, 500 MG PO DAILY Prescribed by: JOHNNA LEON on 11/14/19 1555 Patient Home Medication List Home Medication List Reviewed: Yes Review of Systems Review of Systems Constitutional: no symptoms reported EENTM: no symptoms reported Respiratory: no symptoms reported Cardiovascular: no symptoms reported Gastrointestinal: see HPI Genitourinary: see HPI : No Musculoskeletal: no symptoms reported Skin: see HPI Psychiatric/Neurological: See HPI Hematologic/Lymphatic: No Symptoms Reported Immunological/Allergic: no symptoms reported Past Uxlewgs-[id number] Hx Past Med/Social Hx: Reviewed Nursing Past Med/Soc Hx Patient Social History Recent Infectious Disease Expo: No Recent Hopitalizations: No Past Medical History Surgeries: Yes Hysterectomy Respiratory: No Cardiac: No Neurological: Yes 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 oz. kg; 24.00 BMI Method: General Appearance: WD/WN, Mild Distress (Intermittently hollers out) HEENT: Other (Right eye deviation and impairments. Left eye deviates to the left. Edentulous) Neck: Normal Inspection; No JVD Respiratory: Lungs Clear, Normal Breath Sounds, No Accessory Muscle Use Cardiovascular: Regular Rate, Rhythm, No Edema, No Murmur Gastrointestinal: Normal Bowel Sounds, Non Tender, Soft; No Distended Extremity: Normal Inspection, Non Tender, No Pedal Edema, Other (No apparent pain with rotation of the hips) Neurologic/Psychiatric: Alert, Other (Intermittently agitated but responds to some questions and commands. Verbalizations are not comprehensible. Moves all 4 extremities.) Skin: Normal Color, Warm/Dry, Erythema, Other (Significant erythema of the labia majora and the sacral and superior buttock areas with stage II decubitus ulcers) Progress/Results/Core Measures Suspected Sepsis Recent Fever Within 48 Hours: No Infection Criteria Present: None New/Unexplained Altered Menta: No Sepsis Screen: No Definite Risk SIRS Temperature: Pulse: 80 Respiratory Rate: 18 Laboratory Tests 08/28/20 15:20: White Blood Count 8.1 Blood Pressure 109 /72 Mean: 84 Laboratory Tests 08/28/20 15:20: Creatinine 0.71, Platelet Count 261, Total Bilirubin 0.3 Results/Orders Lab Results Laboratory Tests Test 08/28/20 14:51 08/28/20 15:15 08/28/20 15:20 Range/Units Lab Scanned Report Referred Lab Report [id number] Urine Color YELLOW Urine Clarity CLEAR Urine pH 8.5 5-9 Urine Specific [place] 1.010 L 1.016-1.022 Urine Protein 3+ H NEGATIVE Urine Glucose (UA) NEGATIVE NEGATIVE Urine Ketones NEGATIVE NEGATIVE Urine Nitrite NEGATIVE NEGATIVE Urine Bilirubin NEGATIVE NEGATIVE Urine Urobilinogen 0.2 < = 1.0 MG/DL Urine Leukocyte Esterase 1+ H NEGATIVE Urine RBC (Auto) 3+ H NEGATIVE Urine RBC 50-100 H /HPF Urine WBC 5-10 H /HPF Urine Squamous Epithelial Cells NONE /HPF Urine Crystals NONE /LPF Urine Bacteria LARGE H /HPF Urine Casts NONE /LPF Urine Mucus NEGATIVE /LPF Urine Culture Indicated YES White Blood Count 8.1 4.3-11.0 10^3/uL Red Blood Count 3.99 3.80-5.11 10^6/uL Hemoglobin 11.6 11.5-16.0 g/dL Hematocrit 36 35-52 % Mean Corpuscular Volume 91 80-99 fL Mean Corpuscular Hemoglobin 29 25-34 pg Mean Corpuscular Hemoglobin Concent 32 32-36 g/dL Red Cell Distribution Width 13.6 10.0-14.5 % Platelet Count 261 130-400 10^3/uL Mean Platelet Volume 9.8 9.0-12.2 fL Immature Granulocyte % (Auto) 0 % Neutrophils (%) (Auto) 64 42-75 % Lymphocytes (%) (Auto) 25 12-44 % Monocytes (%) (Auto) 10 0-12 % Eosinophils (%) (Auto) 1 0-10 % Basophils (%) (Auto) 0 0-10 % Neutrophils # (Auto) 5.2 1.8-7.8 10^3/uL Lymphocytes # (Auto) 2.1 1.0-4.0 10^3/uL Monocytes # (Auto) 0.8 0.0-1.0 10^3/uL Eosinophils # (Auto) 0.1 0.0-0.3 10^3/uL Basophils # (Auto) 0.0 0.0-0.1 10^3/uL Immature Granulocyte # (Auto) 0.0 0.0-0.1 10^3/uL Sodium Level 146 H 135-145 MMOL/L Potassium Level 3.8 3.6-5.0 MMOL/L Chloride Level 111 H 98-107 MMOL/L Carbon Dioxide Level 26 21-32 MMOL/L Anion Gap 9 5-14 MMOL/L Blood Urea Nitrogen 33 H 7-18 MG/DL Creatinine 0.71 0.60-1.30 MG/DL Estimat Glomerular Filtration Rate > 60 BUN/Creatinine Ratio 46 Glucose Level 96 70-105 MG/DL Calcium Level 8.6 8.5-10.1 MG/DL Corrected Calcium 8.8 8.5-10.1 MG/DL Total Bilirubin 0.3 0.1-1.0 MG/DL Aspartate Amino Transf (AST/SGOT) 11 5-34 U/L Alanine Aminotransferase (ALT/SGPT) 11 0-55 U/L Alkaline Phosphatase 54 40-136 U/L C-Reactive Protein High Sensitivity 0.05 0.00-0.50 MG/DL Total Protein 6.5 6.4-8.2 GM/DL Albumin 3.7 3.2-4.5 GM/DL Micro Results Microbiology 08/28/20 Urine Culture - Final, Complete Corynebacterium ureolyticum See Comments Gram Pos Mixed Bacterial Mary My Orders Orders - GONSALO VITALE MD Cbc With Automated Diff (08/28/20 15:07) Comprehensive Metabolic Panel (08/28/20 15:07) Hs C Reactive Protein (08/28/20 15:07) Ua Culture If Indicated (08/28/20 15:07) Ed Iv/Invasive Line Start (08/28/20 15:07) Urine Culture (08/28/20 15:15) Ceftriaxone For Iv Use (Rocephin For I (08/28/20 16:15) Lactated Ringers (Lr 1000 Ml Iv Solution (08/28/20 16:15) Iv Push Marine Electrician Apprentice Ed (08/28/20 ) Vital Signs/I&O Capillary Refill : Less Than 3 Seconds Blood Pressure Mean: 84 Progress Note : Progress Note Patient was found to have urinary tract infection by catheter specimen. Rocephin was administered. I did discuss the situation with the home director mikhail ye was concerned that she had not urinated much in the last 24 hours. We will therefore give her a liter of IV fluid as well. Mepilex pads were placed on her decubitus ulcers. I did discuss the situation with the facility specialist who reported they are tending to her decubitus ulcers. Patient appeared to be comfortable after work-up and treatment. Plan is to discharge her back into the care of the facility. Departure Impression Primary Impression: Urinary tract infection Qualified Codes: N39.0 - Urinary tract infection, site not specified; R31.9 - Hematuria, unspecified Additional Impressions: Candidiasis of perineum Decubitus ulcer of sacral region, stage 2 Disposition: 01 HOME, SELF-CARE Condition: Improved Departure-Patient Inst. Decision time for Depature: 16:04 Referrals: KIRAN NEWSOME DO (PCP/Family) Primary Care Physician Patient Instructions: Pressure Sores, Urinary Tract Infection, Adult ED Add. Discharge Instructions: Keep the perineum as dry as possible. Change briefs frequently throughout the day. Attend to the pressure ulcers on the sacrum and buttocks. Evaluate progress daily. She should be rolled onto her side frequently (every 2 hours) to alleviate pressure on the affected area. The Mepilex pads placed in the ER can remain in place for up to 72 hours. Seek instructions from the primary care provider on further care. Complete Augmentin as prescribed. Review urine culture results and adjust therapy as necessary according to primary care provider orders. Culture results from the ER should be available by August 31. Give Diflucan as prescribed once now and then repeat in 3 days. Some blood was noted in the urinalysis. Urinalysis should be repeated in a few weeks to ensure the blood clears. Please arrange this through the primary care provider. All discharge instructions reviewed with patient and/or family. Voiced understanding. Scripts Fluconazole (Diflucan) 150 Mg Tablet 150 MG PO UD, #2 TAB Take 1 tablet now and repeat in 3 days. Prov: GONSALO VITALE MD 08/28/20 Copy Copies To 1: KIRAN NEWSOME JOSHUA T MD Aug 28, 2020 15:41
[2020-08-28 15:44] LABS: ALBUMIN 3.7 GM/DL (3.2-4.5); CHLORIDE 111 MMOL/L (98-107); POTASSIUM 3.8 MMOL/L (3.6-5.0); SODIUM 146 MMOL/L (135-145)
[2020-08-28 15:45] LABS: CALCIUM 8.6 MG/DL (8.5-10.1)
[2020-08-28 15:46] LABS: GLUCOSE 96 MG/DL (70-105); TOTAL PROTEIN 6.5 GM/DL (6.4-8.2)
[2020-08-28 15:48] LABS: BILIRUBIN,TOTAL 0.3 MG/DL (0.1-1.0); CARBON DIOXIDE 26 MMOL/L (21-32)
[2020-08-28 15:50] LABS: ALKALINE PHOSPHATASE 54 U/L (40-136); CREATININE SERUM 0.71 MG/DL (0.60-1.30); GFR ESTIMATED > 60
[2020-08-28 15:51] LABS: BUN/CREATININE RATIO 46
[2020-08-28 15:53] LABS: ALANINE AMINOTRANSFERASE 11 U/L (0-55)
[2020-08-28 15:54] LABS: BACTERIA,URINE LARGE /HPF; RBC,URINE 50-100 /HPF
[2020-08-28] MEDS ORDERED: FLUC150T PO (16:11)
[2020-08-28] MEDS ORDERED: cefTRIAXone FOR IV USE 1,000 MG in WATER (STERILE) FOR INJECTION 10 ML IV ONE (16:15)
[2020-08-28] MEDS ORDERED: LACTATED RINGERS 1,000 ML IV ONE (16:15)
[2020-08-28 17:40] VITALS: BP 155/89
== END 2020-08-28 17:40 | disposition home or self-care (01) ==
LOC: EDUNIT# 14:50 → ER 14:51
DX: N39.0 Urinary tract infection, site not specified (principal); L89.152 Pressure ulcer of sacral region, stage 2
CPT/HCPCS: 36415; 51701; 80053; 81000; 85025; 86141; 87077; 87088; 96361; 96374

== ENCOUNTER → 2020-09-15 | Outpatient (CLI) | payer MEDICARE, MEDICAID ==
[~2020-09-15] MED LIST changes: +FLUC150T PO
--- NOTE | 2020-09-15 14:11 | Diagnostic Imaging Report ---
INDICATION: Fever and cough. COMPARISON: 11/15/2019. FINDINGS: A single frontal radiographic view of the chest was obtained and shows patchy bibasilar airspace opacities, right greater than left. Small effusions cannot be excluded. There is no pneumothorax. The cardiac silhouette and pulmonary vasculature are within normal limits. The osseous structures show no gross acute abnormalities. IMPRESSION: Mild patchy bibasilar atelectasis and/or infiltrate, right greater than left. Dictated by: Dictated on workstation # [id number]
== END ==
LOC: RAD 12:08
PROVIDERS: ATTEND Family Medicine
DX: J98.11 Atelectasis (principal)
CPT/HCPCS: 71045

== ENCOUNTER → 2020-09-18 | Outpatient (CLI) | payer MEDICARE, MEDICAID ==
--- NOTE | 2020-09-18 10:30 | Diagnostic Imaging Report ---
INDICATION: Pneumonia. Leukopenia. COMPARISON: 09/15/2020 FINDINGS: Single frontal radiographic view of the chest was obtained and shows normal cardiac silhouette and pulmonary vasculature. Lungs are clear. There is no focal consolidation, large effusion, nor pneumothorax. Osseous structures show no gross acute abnormalities. IMPRESSION: 1. No acute cardiopulmonary process. Dictated by: Dictated on workstation # [id number]
== END ==
LOC: RAD 09:28
PROVIDERS: ATTEND Family Medicine
DX: J18.9 Pneumonia, unspecified organism (principal); D72.819 Decreased white blood cell count, unspecified
CPT/HCPCS: 71045

== ENCOUNTER → 2022-12-08 | Outpatient (CLI) | payer MEDICARE, MEDICAID ==
[~2022-12-08] MED LIST changes: -DCS100C; +DOCU-239
== END ==
LOC: WOUNDCARE 12:49
PROVIDERS: ATTEND Family Medicine
DX: L89.323 Pressure ulcer of left buttock, stage 3 (principal); L24.A2 Irritant contact dermatitis due to fecal, urinary or dual incontinence; M62.3 Immobility syndrome (paraplegic); F72 Severe intellectual disabilities; Z99.3 Dependence on wheelchair; Y82.8 Other medical devices associated with adverse incidents
CPT/HCPCS: A6197; A6212; G0463; 99214

== ENCOUNTER → 2022-12-14 | Outpatient (CLI) | payer MEDICARE, MEDICAID | LOC: WOUNDCARE 09:13 | PROVIDERS: ATTEND Family Medicine | DX: L89.323 Pressure ulcer of left buttock, stage 3 (principal); L24.A2 Irritant contact dermatitis due to fecal, urinary or dual incontinence; M62.3 Immobility syndrome (paraplegic); F72 Severe intellectual disabilities; Z99.3 Dependence on wheelchair; Y82.8 Other medical devices associated with adverse incidents | CPT/HCPCS: 11042; G0463 ==